=== PATIENT | female | born 1975 | race Caucasian/White ===

== ENCOUNTER → 2025-05-12 | Outpatient (CLI) | payer SELFPAY ==
--- NOTE | 2025-05-12 14:17 | RAD_ITS ---
EXAM: XR Lumbosacral Spine, 4 or 5 Views CLINICAL INDICATION: LUMBAR DYSFUNCTION TECHNIQUE: Frontal, lateral and bilateral oblique views of the lumbar spine. COMPARISON: No relevant prior studies available. FINDINGS: VERTEBRAE: Moderate facet arthropathy of L4-S1. Mild endplate degenerative changes and disc disease of L5-S1. No acute fracture. Normal alignment. SACRUM/COCCYX: Unremarkable as visualized. No acute fracture. DISC SPACES: No acute findings. No significant narrowing. SOFT TISSUES: Unremarkable. RAD/L/S Spine Min 4 Views IMPRESSION: 1. Degenerative changes as above. 2. If symptoms persist, further evaluation with MRI is recommended. Reading Location: [id number]
== END | disposition home or self-care (01) ==
PROVIDERS: PCP Family Medicine; Referring Provider Chiropractor Orthopedic; Visit Provider Chiropractor Orthopedic
DX: M99.03 Segmental and somatic dysfunction of lumbar region (principal); M54.50 Low back pain, unspecified
CPT/HCPCS: 72110